=== PATIENT | male | born 1990 | race Caucasian/White ===

== ENCOUNTER → 2019-04-17 | Outpatient (CLI) | payer BC ==
--- NOTE | 2019-04-17 16:00 | US ---
EXAMINATION TYPE: US kidneys/renal and bladder DATE OF EXAM: 04/17/2019 COMPARISON: CT 2010 CLINICAL HISTORY: Hematuria R31.9. Hematuria EXAM MEASUREMENTS: Right Kidney: 11.3 x 5.0 x 5.2 cm Left Kidney: 11.1 x 5.4 x 5.2 cm Right Kidney: no hydronephrosis, nephrolithiasis or masses seen Left Kidney: no hydronephrosis, nephrolithiasis or masses seen Bladder: wnl Bilateral Jets seen: yes There is no evidence for hydronephrosis at this point in time. No nephrolithiasis is seen. No edwar s are identified. The urinary bladder is anechoic. Bilateral ureteral jets are seen. IMPRESSION: No acute process. If symptoms persist correlate with CT scan.
== END | disposition home or self-care (01) ==
LOC: RADUSWWP 15:25
PROVIDERS: ATTEND Family Medicine
DX: R31.9 Hematuria, unspecified (principal)
CPT/HCPCS: 76770

== ENCOUNTER → 2020-10-19 | Outpatient (CLI) | payer SELFPAY ==
--- NOTE | 2020-10-19 12:04 | XR ---
EXAMINATION TYPE: XR abdomen 2V DATE OF EXAM: 10/19/2020 COMPARISON: NONE HISTORY: Umbilical pain TECHNIQUE: One view abdominal series FINDINGS: The osseous structures are intact. The bowel gas pattern is nonspecific. No suspicious calcification s identified. IMPRESSION: 1. Nonspecific abdomen.
--- NOTE | 2020-10-19 12:08 | XR ---
EXAMINATION TYPE: XR chest 2V DATE OF EXAM: 10/19/2020 COMPARISON: NONE TECHNIQUE: PA and lateral views submitted. HISTORY: chest pain FINDINGS: The lungs are clear and there is no pneumothorax, pleural effusion, or focal pneumonia. IMPRESSION: 1. No acute process.
== END | disposition home or self-care (01) ==
LOC: RADXRYALE 10:53
PROVIDERS: ATTEND Physician Assistant Medical
DX: R10.33 Periumbilical pain (principal); R07.9 Chest pain, unspecified
CPT/HCPCS: 71046; 74019